=== PATIENT | female | born 1965 | race Native Hawaiian/Other Pacific Islander ===

== ENCOUNTER 2017-04-08 08:45 | Emergency (ER) | payer OTHER ==
[~2017-04-08] VITALS: Ht 157.5 cm; Wt 65.8 kg
[2017-04-08] MEDS ORDERED: LORAZEPAM 0.5 MG TABLET PO ONE (09:15)
[2017-04-08] MEDS ORDERED: LORAZEPAM 0.5 MG TABLET ONE (09:30)
--- NOTE | 2017-04-08 09:37 | NUR ---
Patient discharged to home in stable conditon. Written and verbal after care instructions given. Patient verbalizes understanding of instructions.pt walks in steady gait. pt says feels better. pt not driving, coworker will take the pt home.
[2017-04-08 09:38] VITALS: BP 111/81
== END 2017-04-08 09:38 | disposition home or self-care (01) ==
LOC: ER 08:45
DX: F41.1 Generalized anxiety disorder (principal); R06.4 Hyperventilation
CPT/HCPCS: A4663

== ENCOUNTER 2017-09-18 10:47 | Emergency (ER) | payer OTHER ==
[~2017-09-18] VITALS: Ht 157.5 cm; Wt 59.0 kg
[2017-09-18] MEDS ORDERED: FLUORESCEIN SODIUM 1 MG STRIP OP ONE (11:30)
[2017-09-18] MEDS ORDERED: TETRACAINE HCL 0.5% OPHT DROP 2 ML BOTTLE OP ONE (11:30)
[2017-09-18] MEDS ORDERED: FLUORESCEIN SODIUM 1 MG STRIP ONE (11:49)
[2017-09-18] MEDS ORDERED: TETRACAINE HCL 0.5% OPHT DROP 2 ML BOTTLE ONE (11:49)
--- NOTE | 2017-09-18 13:51 | NUR ---
PT REC'D 2 L 0.9NS IRRIGATION TO LEFT EYE WITH MELLY LENS. PT AT THIS TIME AWAITING FOR RE-EVALUATION BY .
--- NOTE | 2017-09-18 14:27 | NUR ---
eye exam was done bydr holley.
--- NOTE | 2017-09-18 14:29 | NUR ---
aci/rx x4 given. pt also instructed regarding appt at 1500 in [facility], also addresses of appt given. pt vrbalized understanding, ambulated w/o diff/took all belongings.
--- NOTE | 2017-09-18 14:31 | NUR ---
pharmacy note: pt rec'd 2l 0.9ns irragation to left eye.
[2017-09-18 14:32] VITALS: BP 97/62
== END 2017-09-18 14:33 | disposition home or self-care (01) ==
LOC: ER 10:47
DX: T26.42XA Burn of left eye and adnexa, part unspecified, initial encounter (principal); T26.62XA Corrosion of cornea and conjunctival sac, left eye, initial encounter; X08.8XXA Exposure to other specified smoke, fire and flames, initial encounter; Y93.89 Activity, other specified; Y92.89 Other specified places as the place of occurrence of the external cause; Y99.8 Other external cause status
CPT/HCPCS: 99284; A4663; J7030 ×2

== ENCOUNTER 2020-03-07 17:15 | Inpatient (IN) | payer BC, OTHER ==
[~2020-03-07] VITALS: Ht 157.5 cm; Wt 59.0 kg
--- NOTE | 2020-03-07 17:25 | NUR ---
PATIENT C/O CHEST PAIN. PLACED ON A MONITOR. 12 LEAD EKG DONE.
[2020-03-07 17:38] LABS: BASOPHILS % (AUTO) 0.5 % (0.0-2.0); EOSINOPHILS # (AUTO) 0.1 K/uL (0.0-0.7); HEMATOCRIT 39.2 % (31.2-41.9); HEMOGLOBIN 12.3 g/dL (10.9-14.3); LYMPHOCYTES # (AUTO) 2.5 K/uL (20.0-40.0); LYMPHOCYTES % (AUTO) 29.1 % (20.5-51.5); MEAN CORPUSCULAR HEMOGLOBIN 20.7 uug (24.7-32.8); MEAN CORPUSCULAR HGB CONC 31 g/dL (32.3-35.6); MEAN CORPUSCULAR VOLUME 66.1 fL (75.5-95.3); MONOCYTES # (AUTO) 0.5 K/uL (2.0-10.0); MONOCYTES % (AUTO) 5.5 % (0.0-11.0); NEUTROPHILS # (AUTO) 5.5 K/uL (1.8-8.9); NEUTROPHILS % (AUTO) 63.9 % (38.5-71.5); PLATELET COUNT (AUTO) 280 K/uL (179-408); RED BLOOD CELL COUNT(AUTO) 5.93 MIL/uL (3.63-4.92); WHITE BLOOD COUNT (AUTO) 8.6 K/uL (3.8-11.8)
[2020-03-07 17:48] LABS: CREATININE 0.9 mg/dL (0.6-1.3)
[2020-03-07 17:54] LABS: BILIRUBIN,DIRECT 0.1 mg/dL (0.0-0.2); BILIRUBIN,TOTAL 0.2 mg/dL (0.2-1.0); TOTAL PROTEIN, SERUM 7.4 g/dL (6.4-8.2)
[2020-03-07] MEDS ORDERED: ASPIRIN 81 MG TAB.CHEW PO ONE (18:15)
[2020-03-07] MEDS ORDERED: ASPIRIN 81 MG TAB.CHEW ONE (18:21)
[2020-03-07] MEDS ORDERED: Z GUARD REMEDY PASTE 57 GM TUBE TOP PRN (18:45)
[2020-03-07] MEDS ORDERED: ACETAMINOPHEN 325 MG TABLET PO PRN (18:45)
[2020-03-07] MEDS ORDERED: ONDANSETRON 4 MG/2 ML VIAL IV PRN (18:45)
[2020-03-07] MEDS ORDERED: MORPHINE SULFATE 2 MG/1 ML DISP.SYRIN IV PRN (18:45)
[2020-03-07] MEDS ORDERED: MAGNESIUM HYDROXIDE 30 ML LIQUID UDC PO PRN (18:45)
[2020-03-07] MEDS ORDERED: HYDROCODONE/APAP 5-325MG TABLET PO PRN (18:45)
--- NOTE | 2020-03-07 19:05 | NUR ---
HAND OFF REPORT GIVEN TO JAMEY MANNING RN
--- NOTE | 2020-03-07 19:17 | NUR ---
RECEIVED SHIFT REPORT FROM YOLETTE HICKEY. PT IS RESTING COMFORTABLY IN BED, VSS. PENDING ADMISSION.
--- NOTE | 2020-03-07 19:36 | NUR ---
ADMITTING REPORT GIVEN TO YOLETTE BOWERS.
--- NOTE | 2020-03-07 20:41 | NUR ---
Pt. admitted to TELE 302, under care of Dr. THORNE. Belongs List completed
--- NOTE | 2020-03-07 20:42 | NUR ---
ADMITTED PATIENT IN TELE FLOOR UNDER THE CARE OF DR. THORNE. PATIENT ALERT ORIENTED, NO SOB , JUST CHEST DISCOMFORT. PATIENT TELE MONITOR SINUS RYTHM SINUS ANDRES 58. PATIENT ALERT ORIENTED, AMBULATORY, CONTINENT, CONT TO MONITOR.
[2020-03-07 21:11] VITALS: BP 111/57
[2020-03-08] VITALS (7 sets, daily range): BP systolic 88–104; BP diastolic 44–64
--- NOTE | 2020-03-08 05:51 | NUR ---
PATIENT ALERT ORIENTED, NO SOB NO CHEST PAIN. PATIENT SLEPT MOST OF THE NIGHT. PATIENT TELE MONITOR SINUS RHYTHM, SINUS ANDRES, NO COMPLAIN OF CHEST PAIN. CONT TO MONITOR.
[2020-03-08 06:06] LABS: BASOPHILS % (AUTO) 0.6 % (0.0-2.0); EOSINOPHILS # (AUTO) 0.1 K/uL (0.0-0.7); EOSINOPHILS % (AUTO) 2.5 % (0.0-7.0); HEMATOCRIT 37.9 % (31.2-41.9); HEMOGLOBIN 11.8 g/dL (10.9-14.3); LYMPHOCYTES # (AUTO) 2.3 K/uL (20.0-40.0); LYMPHOCYTES % (AUTO) 38.4 % (20.5-51.5); MEAN CORPUSCULAR HEMOGLOBIN 20.8 uug (24.7-32.8); MEAN CORPUSCULAR HGB CONC 31 g/dL (32.3-35.6); MEAN CORPUSCULAR VOLUME 66.6 fL (75.5-95.3); MONOCYTES # (AUTO) 0.4 K/uL (2.0-10.0); MONOCYTES % (AUTO) 6.2 % (0.0-11.0); NEUTROPHILS # (AUTO) 3.1 K/uL (1.8-8.9); NEUTROPHILS % (AUTO) 52.3 % (38.5-71.5); PLATELET COUNT (AUTO) 278 K/uL (179-408); RED BLOOD CELL COUNT(AUTO) 5.69 MIL/uL (3.63-4.92)
[2020-03-08 06:19] LABS: CREATININE 0.7 mg/dL (0.6-1.3); MAGNESIUM 2.2 mg/dL (1.8-2.4); PHOSPHOROUS 4.6 mg/dL (2.5-4.9)
[2020-03-08 06:34] LABS: POTASSIUM 3.7 mmol/L (3.5-5.1)
--- NOTE | 2020-03-08 16:35 | NUR ---
pt bp is 88/[address] barnes made aware new orders received noted and carried out
[2020-03-08] MEDS ORDERED: IV NORMAL SALINE 500 ML IV ONE (16:45)
--- NOTE | 2020-03-08 18:50 | NUR ---
pt went to [facility] via ambulances for cardio cta in stable condition
--- NOTE | 2020-03-08 21:17 | NUR ---
BACK FROM SURFSIDE,ALERT X4,RIGHT ARM SWOLLEN UPON ARRIVAL ,ICE PACK NOTED,TELEMETRY SINUS RHYTHM.UP TO THE BATHROOM WITH HELP. FELT DIZZY.DINNER SERVD. MADE COMFORTABLE,
[2020-03-09] VITALS (8 sets, daily range): BP systolic 94–111; BP diastolic 41–65
--- NOTE | 2020-03-09 06:34 | NUR ---
slept most of the nite,no chest pain tele etry sinus rhythm,no chest pain.
--- NOTE | 2020-03-09 07:40 | NUR ---
Received patient in bed, awake alert and verbally responsive. No signs of respiratory noted. No SOB. No complain of Pain or discomfort. Orthostatic Blood pressure check : Lying 111/41 P 65, Sitting 108/59 P 67, standing 97/65 P 79. Kept clean and comfortable. Will continue to monitor.
--- NOTE | 2020-03-09 11:37 | NUR ---
Patient is awake, alert and verbally responsive. Patient with Order to be discharge today, Discharge instruction given to patient and verbalized Understanding. All belongings checked and signed by patient. 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
--- NOTE | 2020-03-09 14:50 | NUR ---
Patient with Order to be discharge Home today, Discharge Instructions given and verbalized Understanding. All belongings was signed and sent with patient, Removed IV site and wrist band, patient was discharge via Private car in stable condition.
== END 2020-03-09 14:20 | disposition home or self-care (01) | DRG 313 ==
LOC: ER 17:17 → TELE3 20:39 → MEDSURG3 03-09 08:31
PROVIDERS: ADMIT Internal Medicine; ATTEND Internal Medicine
DX: R07.89 Other chest pain (principal); F17.210 Nicotine dependence, cigarettes, uncomplicated; E78.5 Hyperlipidemia, unspecified; Z71.6 Tobacco abuse counseling
CPT/HCPCS: 36415; 70030-TC; 71045; 83735; 84100; 85025; 93005; 93307; A4663; G0378; J7040

== ENCOUNTER 2020-03-13 10:13 | Emergency (ER) | payer BC, OTHER ==
[~2020-03-13] VITALS: Ht 157.5 cm; Wt 59.0 kg
--- NOTE | 2020-03-13 10:31 | NUR ---
Patient discharged to home in stable condition. Written and verbal after care instructions given. Patient verbalizes understanding of instructions. Stressed follow up or return to ER for worsening s/s.pt walks in steady gait.
== END 2020-03-13 10:34 | disposition home or self-care (01) ==
LOC: ER 10:14
DX: R42 Dizziness and giddiness (principal); J45.909 Unspecified asthma, uncomplicated; Z87.891 Personal history of nicotine dependence
CPT/HCPCS: A4663

== ENCOUNTER 2021-06-01 07:30 | Outpatient (CLI) | payer BC, OTHER | END 2021-06-01 23:59 | disposition home or self-care (01) | LOC: LAB 07:30 | PROVIDERS: ATTEND Internal Medicine | DX: Z01.812 Encounter for preprocedural laboratory examination (principal); Z20.822 Contact with and (suspected) exposure to COVID-19 ==

== ENCOUNTER 2021-06-04 10:58 | Day surgery (SDC) | payer BC, OTHER ==
[2021-06-04] MEDS ORDERED: PROPOFOL 200 MG/20 ML BOTTLE IV ONE (10:59)
[2021-06-04] MEDS ORDERED: LIDOCAINE-MPF 2% 5 ML VIAL IJ ONE (10:59)
[2021-06-04 11:58] LABS: *BILIRUBIN,URIN 1+ (NEGATIVE); *BLOOD, URINE 2+ (NEGATIVE); *CLARITY,URINE CLOUDY (CLEAR); *COLOR,URINE YELLOW (YELLOW); *KETONES,URINE 1+ (NEGATIVE); *UROBILINOGEN,URINE 0.2 E.U./dl (NORMAL); LEUKOCYTE ESTERASE ,URINE NEGATIVE (NEGATIVE); NITRITE, URINE NEGATIVE (NEGATIVE); PH,URINE 5.5 (5.0-8.0); UGLUCOSE NEGATIVE (NEGATIVE)
[2021-06-04 12:00] LABS: HEMATOCRIT 45.2 % (31.2-41.9); MEAN CORPUSCULAR HEMOGLOBIN 21.1 uug (24.7-32.8); MEAN CORPUSCULAR VOLUME 66.8 fL (75.5-95.3); PLATELET COUNT (AUTO) 303 K/uL (179-408)
[2021-06-04 12:03] LABS: CREATININE 0.6 mg/dL (0.6-1.3)
[2021-06-04 12:17] LABS: BILIRUBIN,TOTAL 0.3 mg/dL (0.2-1.0); TOTAL PROTEIN, SERUM 8.6 g/dL (6.4-8.2)
[2021-06-04 15:05] LABS: BACTERIA,URINE FEW /HPF (NONE SEEN); SQUAMOUS EPITHELIAL CELL,UR MODERATE /HPF (NONE SEEN); URINE AMORPHOUS URATE MANY /HPF
== END 2021-06-04 17:20 | disposition home or self-care (01) ==
LOC: DS 10:58
PROVIDERS: ATTEND Internal Medicine Gastroenterology
DX: Z12.11 Encounter for screening for malignant neoplasm of colon (principal); K64.8 Other hemorrhoids; K63.89 Other specified diseases of intestine; J45.909 Unspecified asthma, uncomplicated; Z79.899 Other long term (current) drug therapy; Z98.890 Other specified postprocedural states
CPT/HCPCS: 36415; 45378; 71045; 80053; 81001; 85025; 85730; 93005; J3490; A4217; A4663; J7030; J7120

== ENCOUNTER 2021-08-09 11:10 | Emergency (ER) | payer BC, OTHER ==
[~2021-08-09] VITALS: Ht 160 cm; Wt 59.0 kg
--- NOTE | 2021-08-09 12:32 | NUR ---
Gave pt d/c instructions, pt verbalized understanding.
== END 2021-08-09 12:15 | disposition home or self-care (01) ==
LOC: ER 11:10
DX: J98.8 Other specified respiratory disorders (principal); Z20.822 Contact with and (suspected) exposure to COVID-19; J45.909 Unspecified asthma, uncomplicated
CPT/HCPCS: 99283; U0003; A4663

== ENCOUNTER 2022-02-06 09:00 | Outpatient (CLI) | payer BC, OTHER | END 2022-02-06 23:59 | disposition home or self-care (01) | LOC: RAD 09:00 | PROVIDERS: ATTEND Family Medicine | DX: R05.9 Cough, unspecified (principal) | CPT/HCPCS: 71250 ==

== ENCOUNTER 2022-04-03 09:10 | Outpatient (CLI) | payer BC, OTHER | END 2022-04-03 23:59 | disposition home or self-care (01) | LOC: RAD 09:10 | PROVIDERS: ATTEND Family Medicine | DX: M19.071 Primary osteoarthritis, right ankle and foot (principal); M20.11 Hallux valgus (acquired), right foot | CPT/HCPCS: 73630; 73650 ==

== ENCOUNTER 2022-04-04 03:10 | Outpatient (CLI) | payer BC, OTHER | END 2022-04-04 10:30 | disposition home or self-care (01) | LOC: LAB 03:10 | PROVIDERS: ATTEND Family Medicine | DX: Z00.00 Encounter for general adult medical examination without abnormal findings (principal) ==

== ENCOUNTER 2022-04-18 07:13 | Outpatient (CLI) | payer BC, OTHER | END 2022-04-18 23:59 | disposition home or self-care (01) | LOC: LAB 07:13 | PROVIDERS: ATTEND Family Medicine | DX: R31.29 Other microscopic hematuria (principal) | CPT/HCPCS: 87086 ==

== ENCOUNTER → 2022-11-01 | Outpatient (CLI) | payer BC, OTHER | END | disposition home or self-care (01) | LOC: CT 08:51 | PROVIDERS: ATTEND Family Medicine | DX: Z12.2 Encounter for screening for malignant neoplasm of respiratory organs (principal); N28.89 Other specified disorders of kidney and ureter; Z72.0 Tobacco use | CPT/HCPCS: 71250 ==

== ENCOUNTER 2023-01-20 08:35 | Outpatient (CLI) | payer BC, OTHER ==
--- NOTE | 2023-01-20 11:13 | NUR ---
U/S AND X-RAYS REPORTS WERE FAXED TO DR. FROST @11:16
[2023-01-22] MEDS ORDERED: IV NORMAL SALINE 250 ML IV ONE (12:53)
[2023-01-22] MEDS ORDERED: SWABABLE VALVE TRANSFER SET EA MC ONE (12:53)
[2023-01-22] MEDS ORDERED: IOHEXOL 300MG/ML 100 ML INFUS..BTL ONE (12:53)
== END 2023-01-20 23:59 | disposition home or self-care (01) ==
LOC: RAD 08:35
PROVIDERS: ATTEND Family Medicine
DX: R10.9 Unspecified abdominal pain (principal); R07.81 Pleurodynia
CPT/HCPCS: 71101; 76700; Q9967

== ENCOUNTER 2023-01-22 08:02 | Outpatient (CLI) | payer BC, OTHER ==
[2023-01-22 08:27] LABS: HEMATOCRIT 40.2 % (31.2-41.9); MEAN CORPUSCULAR HEMOGLOBIN 20.8 uug (24.7-32.8); MEAN CORPUSCULAR VOLUME 67.2 fL (75.5-95.3); PLATELET COUNT (AUTO) 322 K/uL (179-408)
[2023-01-22 08:31] LABS: *BILIRUBIN,URIN NEGATIVE (NEGATIVE); *CLARITY,URINE CLEAR (CLEAR); *COLOR,URINE YELLOW (YELLOW); *KETONES,URINE NEGATIVE (NEGATIVE); *UROBILINOGEN,URINE 0.2 E.U./dl (NORMAL); LEUKOCYTE ESTERASE ,URINE NEGATIVE (NEGATIVE); NITRITE, URINE NEGATIVE (NEGATIVE); UGLUCOSE NEGATIVE (NEGATIVE)
[2023-01-22 08:40] LABS: BILIRUBIN,TOTAL 0.4 mg/dL (0.2-1.0); CREATININE 0.6 mg/dL (0.6-1.3); POTASSIUM 3.8 mmol/L (3.5-5.1); TOTAL PROTEIN, SERUM 7.6 g/dL (6.4-8.2)
[2023-01-22 09:06] LABS: *BLOOD, URINE TRACE (NEGATIVE)
[2023-01-22 09:21] LABS: BACTERIA,URINE FEW /HPF (NONE SEEN); RBC,URINE 0-3 /HPF (0-3); SQUAMOUS EPITHELIAL CELL,UR MODERATE /HPF (NONE SEEN); WBC,URINE 0-3 /HPF (0-3)
== END 2023-01-22 23:59 | disposition home or self-care (01) ==
LOC: LAB 08:02 → RAD 23:59
PROVIDERS: ATTEND Family Medicine
DX: S22.41XA Multiple fractures of ribs, right side, initial encounter for closed fracture (principal); R10.9 Unspecified abdominal pain; R07.9 Chest pain, unspecified; X58.XXXA Exposure to other specified factors, initial encounter; Y93.89 Activity, other specified; Y92.89 Other specified places as the place of occurrence of the external cause; Y99.8 Other external cause status
CPT/HCPCS: 71250; 80053; 81001; 85025; 36415; 74177; 87040; Q9967

== ENCOUNTER 2023-04-28 09:08 | Emergency (ER) | payer BC, OTHER ==
[~2023-04-28] VITALS: Ht 162.6 cm; Wt 59.0 kg
[2023-04-28] MEDS ORDERED: MECLIZINE HCL 25 MG TABLET PO ONE (09:15)
[2023-04-28] MEDS ORDERED: IV NORMAL SALINE 500 ML BAG IV ONE (09:15)
[2023-04-28] MEDS ORDERED: ALBU8.5H8 INH (09:16)
[2023-04-28] MEDS ORDERED: MECLIZINE HCL 25 MG TABLET ONE (09:25)
[2023-04-28 09:45] LABS: BASOPHILS # (AUTO) 0.1 K/UL (0.0-0.2); BASOPHILS % (AUTO) 0.8 % (0.0-2.0); EOSINOPHILS # (AUTO) 0.1 K/uL (0.0-0.7); EOSINOPHILS % (AUTO) 1.6 % (0.0-7.0); HEMATOCRIT 40.8 % (31.2-41.9); HEMOGLOBIN 12.9 g/dL (10.9-14.3); LYMPHOCYTES # (AUTO) 2.5 K/uL (0.8-4.8); LYMPHOCYTES % (AUTO) 36.4 % (20.5-51.5); MEAN CORPUSCULAR HGB CONC 32 g/dL (32.3-35.6); MEAN CORPUSCULAR VOLUME 66.4 fL (75.5-95.3); MONOCYTES # (AUTO) 0.3 K/uL (0.1-1.30); MONOCYTES % (AUTO) 4.6 % (0.0-11.0); NEUTROPHILS # (AUTO) 3.9 K/uL (1.8-8.9); NEUTROPHILS % (AUTO) 56.6 % (38.5-71.5); PLATELET COUNT (AUTO) 291 K/uL (179-408); RED BLOOD CELL COUNT(AUTO) 6.14 MIL/uL (3.63-4.92); RED CELL DISTRIBUTION WIDTH 16.1 % (12.3-17.7); WHITE BLOOD COUNT (AUTO) 6.9 K/uL (3.8-11.8)
[2023-04-28 09:49] LABS: DIFFERENTIAL COMMENT 1
[2023-04-28 10:00] LABS: CALCIUM 8.6 mg/dL (8.5-10.1); CREATININE 0.7 mg/dL (0.6-1.3); POTASSIUM 3.7 mmol/L (3.5-5.1)
[2023-04-28 10:13] LABS: BILIRUBIN,TOTAL 0.3 mg/dL (0.2-1.0); TOTAL PROTEIN, SERUM 7.4 g/dL (6.4-8.2)
[2023-04-28] MEDS ORDERED: KETOROLAC TROMETHAMINE 15 MG INJ IVP ONE (10:15)
[2023-04-28] MEDS ORDERED: KETOROLAC TROMETHAMINE 15 MG INJ ONE (11:30)
[2023-04-28 14:03] VITALS: BP 107/59; O2SAT 99
== END 2023-04-28 14:05 | disposition home or self-care (01) ==
LOC: ER 09:08
DX: R42 Dizziness and giddiness (principal); J45.909 Unspecified asthma, uncomplicated; F17.210 Nicotine dependence, cigarettes, uncomplicated; Z79.899 Other long term (current) drug therapy
CPT/HCPCS: 99285; 96374; 70450; 96361; 80053; 83880; 85025; 84484; 93005; J1885; J7040; A4663; J8597

== ENCOUNTER 2024-01-10 12:07 | Emergency (ER) | payer BC, OTHER ==
[~2024-01-10] VITALS: Ht 162.6 cm; Wt 59.0 kg
[~2024-01-10 12:07] MED LIST: ALBU8.5H8 INH
[2024-01-10] MEDS ORDERED: HYDROCODONE/APAP 5-325MG TABLET ONE (12:39)
[2024-01-10] MEDS: HYDROCODONE/APAP 5-325MG TABLET PO ONE (12:43)
[2024-01-10] MEDS ORDERED: HYDR-4275 PO (13:11)
[2024-01-10] MEDS ORDERED: WALK1EAC55 MC (13:14)
[2024-01-10 13:18] VITALS: BP 121/70; O2SAT 99
== END 2024-01-10 13:48 | disposition home or self-care (01) ==
LOC: ER 12:08
DX: S82.61XA Displaced fracture of lateral malleolus of right fibula, initial encounter for closed fracture (principal); J45.909 Unspecified asthma, uncomplicated; F17.200 Nicotine dependence, unspecified, uncomplicated; Z79.899 Other long term (current) drug therapy; Z60.2 Problems related to living alone; X58.XXXA Exposure to other specified factors, initial encounter; Y93.89 Activity, other specified; Y92.89 Other specified places as the place of occurrence of the external cause; Y99.8 Other external cause status
CPT/HCPCS: 73610; A4606; A4663